=== PATIENT | male | born 1965 | race African-American/Black ===

== ENCOUNTER 2018-10-03 08:35 | Observation (INO) | payer MEDICAID ==
[2018-10-03] MEDS ORDERED: Sodium Chloride 0.9% 10 ML Syringe FLUSH PRN (09:04)
[2018-10-03] MEDS ORDERED: Sodium Chloride 0.9% 2.5 ML Syringe FLUSH PRN (09:04)
[2018-10-03] MEDS ORDERED: Labetalol 20 MG/4 ML Syringe IVPUSH ONE (09:04)
--- NOTE | 2018-10-03 09:09 | EDM.PDOC ---
ED HPI GENERAL MEDICAL PROBLEM - General Chief Complaint: Neuro Symptoms/Deficits Stated Complaint: SICK Time Seen by Provider: 10/03/18 08:54 - History of Present Illness INITIAL COMMENTS - FREE TEXT/NARRATIVE: HISTORY AND PHYSICAL: History of present illness: The patient is a 53-year-old male who presents with complaints of waking at 4: 00 this morning, approximately 5 hours ago with a frontal headache and feeling tingling and numbness on his right upper extremity right trunk and right leg. He had no weakness no nausea no vomiting no chest pain or shortness of breath and he says he took some Aleve/Advil and he went back to sleep. He woke this morning and did not have a headache but still had the numbness and tingling. He again says that there is no weakness no recent falls no neck or back pain and actually no headache or visual issues currently. The patient says that this happened about a year ago when he was at home in [place] and he was admitted to the hospital because his blood pressure was very high. He was not told that he had a stroke. He tells us that when he had this admission the numbness was so bad that he could not even walk. He says that the symptoms that he is having now are very similar to those that he had in [place]. He says that since that time he was on blood pressure medications, the name of which he does not know, but he ran out about 3 weeks ago. He says that over the last year he has had intermittent episodes of the same numbness or tingling on the right side but it never involves confusion or trouble swallowing and this is very similar that's why he was not alarmed at 4 in the morning. Currently he has no issues with speech she doesn't feel confused and he has no issues with swallowing. He ambulated into the ED. He denies any recent fevers chills or trauma no upper respiratory infections and he says he is eating and drinking normally. Currently on my evaluation he has no headache or weakness and he has this complaints of subjective numbness and tingling. He does live in [place] and does not have a local provider Review of systems: As per history of present illness and below otherwise all systems reviewed and negative. Past medical history: As per history of present illness and as reviewed below otherwise noncontributory. Surgical history: As per history of present illness and as reviewed below otherwise noncontributory. Social history: No reported history of drug or alcohol abuse. Family history: As per history of present illness and as reviewed below otherwise noncontributory. Physical exam: General: Well-developed well-nourished man who is nontoxic and speaking clearly in the ED. He is mildly overweight and vital signs are noted by me HEENT: Atraumatic, normocephalic, pupils reactive, negative for conjunctival pallor or scleral icterus, mucous membranes moist, throat clear, neck supple, nontender, trachea midline. Lungs: Clear to auscultation, breath sounds equal bilaterally, chest nontender. Heart: S1S2, regular, negative for clicks, rubs, or JVD. Abdomen: Soft, nondistended, nontender. Negative for masses or hepatosplenomegaly. Negative for costovertebral tenderness. Pelvis: Stable nontender. Genitourinary: Deferred. Rectal: Deferred. Extremities: Atraumatic, negative for cords or calf pain. Neurovascular unremarkable. No pedal edema or leg asymmetry Neuro: Awake, alert, oriented. Cranial nerves II through XII unremarkable. Cerebellum unremarkable. Motor and sensory unremarkable throughout. Exam nonfocal. There is no drift, motor block mechanic are normal bilaterally and strength is 5/5 throughout and on simple touch and pressure the patient has no sensory deficits appreciated. Dorsi and plantar flexion is 5/5 inclusive of the great toe. Diagnostics: NIHSS CT scan of the head chest x-ray CBC CMP INR troponin TSH UA with reflex Therapeutics: IV O2 monitor aspirin after CT scan of the head labetalol NIHSS=0 This case was called as a stroke code but the patient is currently at 5 hours and his stroke scale is 0 so at this point I do not feel that he is a candidate for TPA. Patient's repeat blood pressure is 160/94 without intervention. The patient had not received the dose of labetalol as I have ordered. We'll hold that at this time. 1125: Repeat blood pressure currently is 150/100 and the patient says his symptoms have resolved. In light of this pressure lability and his symptoms I will admit him as hypertension urgency with paresthesias. I will discuss this case with Dr. Myrick. The patient is aware of all of these findings and is agreeable 1140: Case is discussed with Dr. Myrick who accepts the patient for admission. I also discussed with the patient all of his testing results and observation admission and he is agreeable. Impression: Hypertensive urgency, right-sided paresthesias improved Definitive disposition and diagnosis as appropriate pending reevaluation and review of above. - Related Data Allergies Allergy/AdvReac Type Severity Reaction Status Date / Time No Known Allergies Allergy Verified 10/03/18 08:56 Home Meds: Home Meds Blood Pressure Medication 10/03/18 [History] Past Medical History Cardiovascular History: Reports: Hypertension - Infectious Disease History Infectious Disease History: Reports: Chicken Pox - Past Surgical History Other Musculoskeletal Surgeries/Procedures:: hand surgery Social & Family History - Family History Family Medical History: Noncontributory - Tobacco Use Smoking Status *Q: Never Smoker - Recreational Drug Use Recreational Drug Use: No ED ROS GENERAL - Review of Systems Review Of Systems: ROS reveals no pertinent complaints other than HPI. ED EXAM, GENERAL - Physical Exam Exam: See Below (See dictation) Course - Vital Signs Last Recorded V/S: Last Vital Signs Temp 36.2 C 10/03/18 10:09 Pulse 84 10/03/18 11:07 Resp 18 10/03/18 11:07 BP 162/98 H 10/03/18 11:07 Pulse Ox 97 10/03/18 11:07 - Orders/Labs/Meds Orders: Active Orders 24 hr Category Date Time Status Patient Status [ADT] Stat ADT 10/03/18 11:50 Ordered Blood Glucose Check, Bedside [RC] ONETIME Care 10/03/18 09:03 Active Cardiac Monitoring [RC] . DIRECTED Care 10/03/18 09:03 Active Communication Order [RC] STAT Care 10/03/18 09:05 Active EKG Documentation Completion [RC] STAT Care 10/03/18 09:03 Active Oxygen Therapy, ED [RC] ASDIRECTED Care 10/03/18 09:03 Active Pulse Oximetry [RC] ASDIRECTED Care 10/03/18 09:03 Active UA RFX ROSI AND CULT IF INDIC [URIN] Stat Lab 10/03/18 11:09 Ordered Sodium Chloride 0.9% [Saline Flush] Med 10/03/18 09:04 Active 10 ml FLUSH ASDIRECTED PRN Sodium Chloride 0.9% [Saline Flush] Med 10/03/18 09:04 Active 2.5 ml FLUSH ASDIRECTED PRN Saline Lock Insert [OM.PC] Stat Oth 10/03/18 09:03 Ordered Medication Orders Sodium Chloride (Saline Flush) 10 ml FLUSH ASDIRECTED PRN PRN Reason: Keep Vein Open Last Admin: 10/03/18 10:22 Dose: 10 ml Sodium Chloride (Saline Flush) 2.5 ml FLUSH ASDIRECTED PRN PRN Reason: Keep Vein Open Last Admin: 10/03/18 10:22 Dose: 2.5 ml Labs: Laboratory Tests 10/03/18 10/03/18 10/03/18 Range/Units 09:04 09:20 09:20 WBC 5.12 (4.0-11.0) K/uL RBC 6.14 H (4.50-5.90) M/uL Hgb 15.9 (13.0-17.0) g/dL Hct 48.7 (38.0-50.0) % MCV 79.3 L (80.0-98.0) fL MCH 25.9 L (27.0-32.0) pg MCHC 32.6 (31.0-37.0) g/dL RDW Std Deviation 43.5 (28.0-62.0) fl RDW Coeff of Cee 15 (11.0-15.0) % Plt Count 94 L (150-400) K/uL MPV 10.50 (7.40-12.00) fL Neut % (Auto) 55.4 (48.0-80.0) % Lymph % (Auto) 33.0 (16.0-40.0) % [place]son % (Auto) 9.2 (0.0-15.0) % Eos % (Auto) 2.0 (0.0-7.0) % Baso % (Auto) 0.4 (0.0-1.5) % Neut # (Auto) 2.8 (1.4-5.7) K/uL Lymph # (Auto) 1.7 (0.6-2.4) K/uL [place] # (Auto) 0.5 (0.0-0.8) K/uL Eos # (Auto) 0.1 (0.0-0.7) K/uL Baso # (Auto) 0.0 (0.0-0.1) K/uL Nucleated RBC % 0.0 /100WBC Nucleated RBCs # 0 K/uL INR 1.04 Sodium (136-148) mmol/L Potassium (3.5-5.1) mmol/L Chloride (98-107) mmol/L Carbon Dioxide (21.0-32.0) mmol/L BUN (7.0-18.0) mg/dL Creatinine (0.8-1.3) mg/dL Est Cr Clr Drug Dosing mL/min Estimated GFR (MDRD) ml/min Glucose (74-106) mg/dL POC Glucose 86 (60-110) mg/dL Calcium (8.5-10.1) mg/dL Total Bilirubin (0.2-1.0) mg/dL AST (15-37) IU/L ALT (14-63) IU/L Alkaline Phosphatase (46-116) U/L Troponin I (0.000-0.056) ng/mL Total Protein (6.4-8.2) g/dL Albumin (3.4-5.0) g/dL Globulin (2.6-4.0) g/dL Albumin/Globulin Ratio (0.9-1.6) TSH 3rd Generation (0.36-3.74) uIU/mL 10/03/18 Range/Units 09:20 WBC (4.0-11.0) K/uL RBC (4.50-5.90) M/uL Hgb (13.0-17.0) g/dL Hct (38.0-50.0) % MCV (80.0-98.0) fL MCH (27.0-32.0) pg MCHC (31.0-37.0) g/dL RDW Std Deviation (28.0-62.0) fl RDW Coeff of Cee (11.0-15.0) % Plt Count (150-400) K/uL MPV (7.40-12.00) fL Neut % (Auto) (48.0-80.0) % Lymph % (Auto) (16.0-40.0) % [place]pherson % (Auto) (0.0-15.0) % Eos % (Auto) (0.0-7.0) % Baso % (Auto) (0.0-1.5) % Neut # (Auto) (1.4-5.7) K/uL Lymph # (Auto) (0.6-2.4) K/uL [place]pherson # (Auto) (0.0-0.8) K/uL Eos # (Auto) (0.0-0.7) K/uL Baso # (Auto) (0.0-0.1) K/uL Nucleated RBC % /100WBC Nucleated RBCs # K/uL INR Sodium 141 (136-148) mmol/L Potassium 3.8 (3.5-5.1) mmol/L Chloride 106 (98-107) mmol/L Carbon Dioxide 22.8 (21.0-32.0) mmol/L BUN 14 (7.0-18.0) mg/dL Creatinine 1.4 H (0.8-1.3) mg/dL Est Cr Clr Drug Dosing 67.75 mL/min Estimated GFR (MDRD) > 60.0 ml/min Glucose 86 (74-106) mg/dL POC Glucose (60-110) mg/dL Calcium 8.5 (8.5-10.1) mg/dL Total Bilirubin 0.6 (0.2-1.0) mg/dL AST 20 (15-37) IU/L ALT 24 (14-63) IU/L Alkaline Phosphatase 97 (46-116) U/L Troponin I < 0.050 (0.000-0.056) ng/mL Total Protein 8.3 H (6.4-8.2) g/dL Albumin 3.3 L (3.4-5.0) g/dL Globulin 5.0 H (2.6-4.0) g/dL Albumin/Globulin Ratio 0.7 L (0.9-1.6) TSH 3rd Generation 1.89 (0.36-3.74) uIU/mL Meds: Medications Generic Name Dose Route Start Last Admin Trade Name Freq PRN Reason Stop Dose Admin Sodium Chloride 10 ml 10/03/18 09:04 10/03/18 10:22 Saline Flush FLUSH 10 ml ASDIRECTED PRN Administration Keep Vein Open Sodium Chloride 2.5 ml 10/03/18 09:04 10/03/18 10:22 Saline Flush FLUSH 2.5 ml ASDIRECTED PRN Administration Keep Vein Open Discontinued Medications Generic Name Dose Route Start Last Admin Trade Name Freq PRN Reason Stop Dose Admin Aspirin 325 mg 10/03/18 09:38 10/03/18 10:22 Aspirin PO 10/03/18 09:39 Not Given ONETIME ONE Aspirin Confirm 10/03/18 10:14 10/03/18 11:29 Aspirin Administered 10/03/18 10:15 Not Given Dose 324 mg .ROUTE .STK-MED ONE Aspirin 324 mg 10/03/18 10:21 10/03/18 10:22 Aspirin PO 10/03/18 10:22 324 mg ONETIME ONE Administration Labetalol HCl 20 mg 10/03/18 09:04 10/03/18 11:32 Normodyne IVPUSH 10/03/18 09:05 Not Given NOW ONE Protocol Departure - Departure Time of Disposition: 11:53 Disposition: Refer to Observation Condition: Good Clinical Impression: Hypertensive urgency, Paresthesias - Discharge Information Referrals: PCP,Unknown [Primary Care Provider] - Forms: ED Department Discharge - My Orders Last 24 Hours: My Active Orders 10/03/18 09:03 Blood Glucose Check, Bedside [RC] ONETIME Cardiac Monitoring [RC] . DIRECTED EKG Documentation Completion [RC] STAT Oxygen Therapy, ED [RC] ASDIRECTED Pulse Oximetry [RC] ASDIRECTED Saline Lock Insert [OM.PC] Stat 10/03/18 09:04 Sodium Chloride 0.9% [Saline Flush] 10 ml FLUSH ASDIRECTED PRN Sodium Chloride 0.9% [Saline Flush] 2.5 ml FLUSH ASDIRECTED PRN 10/03/18 09:05 Communication Order [RC] STAT 10/03/18 11:09 UA RFX ROSI AND CULT IF INDIC [URIN] Stat 10/03/18 11:50 Patient Status [ADT] Stat - Assessment/Plan Last 24 Hours: My Active Orders 10/03/18 09:03 Blood Glucose Check, Bedside [RC] ONETIME Cardiac Monitoring [RC] . DIRECTED EKG Documentation Completion [RC] STAT Oxygen Therapy, ED [RC] ASDIRECTED Pulse Oximetry [RC] ASDIRECTED Saline Lock Insert [OM.PC] Stat 10/03/18 09:04 Sodium Chloride 0.9% [Saline Flush] 10 ml FLUSH ASDIRECTED PRN Sodium Chloride 0.9% [Saline Flush] 2.5 ml FLUSH ASDIRECTED PRN 10/03/18 09:05 Communication Order [RC] STAT 10/03/18 11:09 UA RFX ROSI AND CULT IF INDIC [URIN] Stat 10/03/18 11:50 Patient Status [ADT] Stat
--- NOTE | 2018-10-03 09:36 | CT ---
HISTORY: Numbness. TECHNIQUE: Noncontrast head CT. COMPARISON: No prior. FINDINGS: There are a few areas of white matter low attenuation which are nonspecific but may reflect sequelae of chronic small vessel ischemic changes. There are globus palladi calcifications. There is no acute ischemic infarct or acute intracranial hemorrhage. No mass effect or midline shift. No hydrocephalus. No extra-axial collection or hematoma. Mastoid air cells are clear. There is mucosal thickening involving multiple paranasal sinuses. No acute skull fracture. IMPRESSION: 1. No acute intracranial disease. 2. A few areas of white matter low attenuation which are nonspecific but may reflect sequelae of chronic small vessel ischemic changes. Other considerations would sequelae of prior migraine headaches, demyelination versus other process. Dictated by Logan Ho MD @ 10/03/2018 9:34:33 AM Please note that all CT scans at this facility use dose modulation, iterative reconstruction, and/or weight-based dosing when appropriate to reduce radiation dose to as low as reasonably achievable. Dictated by: Logan Ho MD @ 10/03/2018 09:34:44 (Electronically Signed)
[2018-10-03] MEDS ORDERED: Aspirin 325 MG Tab PO ONE (09:38)
--- NOTE | 2018-10-03 09:38 | CR ---
HISTORY: Chest pain, shortness of breath. TECHNIQUE: One view of the chest. COMPARISON: No prior. FINDINGS: Examination limited by patient body habitus. There is no consolidation or pulmonary edema. No pneumothorax. No moderate or large pleural effusion. Cardiac size is within normal limits accounting for technique. IMPRESSION: 1. Examination limited by patient body habitus. 2. No definite acute disease. Dictated by Logan Ho MD @ 10/03/2018 9:35:50 AM Dictated by: Logan Ho MD @ 10/03/2018 09:35:52 (Electronically Signed)
[2018-10-03 10:12] LABS: CHLORIDE,CL 106 mmol/L (98-107); SODIUM,NA 141 mmol/L (136-148)
[2018-10-03] MEDS ORDERED: Aspirin 81 MG Tab.Chew ONE (10:14)
[2018-10-03] MEDS ORDERED: Aspirin 81 MG Tab.Chew PO ONE (10:21)
[2018-10-03] MEDS ORDERED: oxyCODONE 5 MG Tab PO PRN (12:12)
[2018-10-03] MEDS ORDERED: Acetaminophen 325 MG Tab PO PRN (12:12)
[2018-10-03] MEDS ORDERED: Heparin Sodium 5,000 Units/ML Vial SUBCUT SCH (12:15)
--- NOTE | 2018-10-03 12:17 | PCM.HP ---
H&P History of Present Illness - General Date of Service: 10/03/18 Admit Problem/Dx: Admission Diagnosis/Problem Admission Diagnosis/Problem Hypertensive urgency Source of Information: Patient History Limitations: Reports: No Limitations - History of Present Illness Initial Comments - Free Text/Narative: The patient is a 53-year-old gentleman who presented to the emergency room today with a complaint of numbness and tingling to his right side. The patient said this started approximately the patient also says that he has been without his antihypertensive medication for approximately 3 weeks. The patient normally lives in [place]. The patient's family is in [place] and he works up here during the summertime. The patient says that he does not remember what hypertensive medications he had been on. The patient was brought in as a stroke code. Upon admission the patient's blood pressure was 190/115 mmHg. Currently the patient says that he feels better. His blood pressure is been better controlled. The patient also says that his numbness and tingling has essentially gone away. He has denied any pain. No nausea or vomiting. He's had some dizziness associated. Onset of Symptoms: Reports: Sudden Duration of Symptoms: Reports: Hour(s): Location: Reports: Head, Upper Extremity, Right, Lower Extremity, Right Quality: Reports: Other (Numbness and tingling) Improves with: Reports: None Worsens with: Reports: None Associated Symptoms: Reports: No Other Symptoms - Related Data Allergies/Adverse Reactions: Allergies Allergy/AdvReac Type Severity Reaction Status Date / Time No Known Allergies Allergy Verified 10/03/18 08:56 Home Medications: Home Meds Blood Pressure Medication 10/03/18 [History] Past Medical History HEENT History: Reports: None Cardiovascular History: Reports: Hypertension Respiratory History: Reports: None Gastrointestinal History: Reports: None Genitourinary History: Reports: None Musculoskeletal History: Reports: None Neurological History: Reports: None Psychiatric History: Reports: None Endocrine/Metabolic History: Reports: None Hematologic History: Reports: None - Infectious Disease History Infectious Disease History: Reports: Chicken Pox - Past Surgical History Other Musculoskeletal Surgeries/Procedures:: hand surgery Social & Family History - Family History Family Medical History: Noncontributory - Tobacco Use Smoking Status *Q: Never Smoker - Alcohol Use Alcohol Use History: Yes Alcohol Use Frequency: Rarely - Recreational Drug Use Recreational Drug Use: No - Living Situation & Occupation Living situation: Reports: , with Family Occupation: Employed H&P Review of Systems - Review of Systems: Review Of Systems: See Below General: Reports: No Symptoms HEENT: Reports: No Symptoms Pulmonary: Reports: No Symptoms Cardiovascular: Reports: No Symptoms Gastrointestinal: Reports: No Symptoms Genitourinary: Reports: No Symptoms Musculoskeletal: Reports: No Symptoms Skin: Reports: No Symptoms Psychiatric: Reports: No Symptoms Neurological: Reports: Dizziness, Headache, Paresthesia Hematologic/Lymphatic: Reports: No Symptoms Immunologic: Reports: No Symptoms Exam - Exam Exam: See Below - Vital Signs Vital Signs: Last Vital Signs Temp 36.2 C 10/03/18 10:09 Pulse 80 10/03/18 11:59 Resp 12 10/03/18 11:59 BP 156/100 H 10/03/18 11:59 Pulse Ox 98 10/03/18 11:59 Weight: 113.852 kg - Exam Quality Assessment: No: Supplemental Oxygen General: Alert, Oriented, Cooperative HEENT: Conjunctiva Clear, EACs Clear, EOMI, Mucosa Moist & [place], Nares Patent, Pupils Equal, PERRLA Neck: Supple, Trachea Midline Lungs: Clear to Auscultation, Normal Respiratory Effort Cardiovascular: Regular Rate, Regular Rhythm GI/Abdominal Exam: Normal Bowel Sounds, Soft, Non-Tender, No Distention Back Exam: Normal Inspection, Full Range of Motion Extremities: Normal Inspection, Normal Range of Motion, No Pedal Edema Skin: Warm, Dry, Intact Neurological: Cranial Nerves Intact Neuro Extensive - Mental Status: Alert, Oriented x3 Psychiatric: Alert, Normal Affect, Normal Mood - Patient Data Lab Results Last 24 hrs: Laboratory Results - last 24 hr 10/03/18 10/03/18 10/03/18 Range/Units 09:04 09:20 09:20 WBC 5.12 (4.0-11.0) K/uL RBC 6.14 H (4.50-5.90) M/uL Hgb 15.9 (13.0-17.0) g/dL Hct 48.7 (38.0-50.0) % MCV 79.3 L (80.0-98.0) fL MCH 25.9 L (27.0-32.0) pg MCHC 32.6 (31.0-37.0) g/dL RDW Std Deviation 43.5 (28.0-62.0) fl RDW Coeff of Cee 15 (11.0-15.0) % Plt Count 94 L (150-400) K/uL MPV 10.50 (7.40-12.00) fL Neut % (Auto) 55.4 (48.0-80.0) % Lymph % (Auto) 33.0 (16.0-40.0) % Dawes % (Auto) 9.2 (0.0-15.0) % Eos % (Auto) 2.0 (0.0-7.0) % Baso % (Auto) 0.4 (0.0-1.5) % Neut # (Auto) 2.8 (1.4-5.7) K/uL Lymph # (Auto) 1.7 (0.6-2.4) K/uL Dawes # (Auto) 0.5 (0.0-0.8) K/uL Eos # (Auto) 0.1 (0.0-0.7) K/uL Baso # (Auto) 0.0 (0.0-0.1) K/uL Nucleated RBC % 0.0 /100WBC Nucleated RBCs # 0 K/uL INR 1.04 Sodium (136-148) mmol/L Potassium (3.5-5.1) mmol/L Chloride (98-107) mmol/L Carbon Dioxide (21.0-32.0) mmol/L BUN (7.0-18.0) mg/dL Creatinine (0.8-1.3) mg/dL Est Cr Clr Drug Dosing mL/min Estimated GFR (MDRD) ml/min Glucose (74-106) mg/dL POC Glucose 86 (60-110) mg/dL Calcium (8.5-10.1) mg/dL Total Bilirubin (0.2-1.0) mg/dL AST (15-37) IU/L ALT (14-63) IU/L Alkaline Phosphatase (46-116) U/L Troponin I (0.000-0.056) ng/mL Total Protein (6.4-8.2) g/dL Albumin (3.4-5.0) g/dL Globulin (2.6-4.0) g/dL Albumin/Globulin Ratio (0.9-1.6) TSH 3rd Generation (0.36-3.74) uIU/mL 10/03/18 Range/Units 09:20 WBC (4.0-11.0) K/uL RBC (4.50-5.90) M/uL Hgb (13.0-17.0) g/dL Hct (38.0-50.0) % MCV (80.0-98.0) fL MCH (27.0-32.0) pg MCHC (31.0-37.0) g/dL RDW Std Deviation (28.0-62.0) fl RDW Coeff of Cee (11.0-15.0) % Plt Count (150-400) K/uL MPV (7.40-12.00) fL Neut % (Auto) (48.0-80.0) % Lymph % (Auto) (16.0-40.0) % Dawes % (Auto) (0.0-15.0) % Eos % (Auto) (0.0-7.0) % Baso % (Auto) (0.0-1.5) % Neut # (Auto) (1.4-5.7) K/uL Lymph # (Auto) (0.6-2.4) K/uL Dawes # (Auto) (0.0-0.8) K/uL Eos # (Auto) (0.0-0.7) K/uL Baso # (Auto) (0.0-0.1) K/uL Nucleated RBC % /100WBC Nucleated RBCs # K/uL INR Sodium 141 (136-148) mmol/L Potassium 3.8 (3.5-5.1) mmol/L Chloride 106 (98-107) mmol/L Carbon Dioxide 22.8 (21.0-32.0) mmol/L BUN 14 (7.0-18.0) mg/dL Creatinine 1.4 H (0.8-1.3) mg/dL Est Cr Clr Drug Dosing 67.75 mL/min Estimated GFR (MDRD) > 60.0 ml/min Glucose 86 (74-106) mg/dL POC Glucose (60-110) mg/dL Calcium 8.5 (8.5-10.1) mg/dL Total Bilirubin 0.6 (0.2-1.0) mg/dL AST 20 (15-37) IU/L ALT 24 (14-63) IU/L Alkaline Phosphatase 97 (46-116) U/L Troponin I < 0.050 (0.000-0.056) ng/mL Total Protein 8.3 H (6.4-8.2) g/dL Albumin 3.3 L (3.4-5.0) g/dL Globulin 5.0 H (2.6-4.0) g/dL Albumin/Globulin Ratio 0.7 L (0.9-1.6) TSH 3rd Generation 1.89 (0.36-3.74) uIU/mL Result Diagrams: 10/03/18 09:20 10/03/18 09:20 - Problem List (1) Hypertensive urgency SNOMED Code(s): 681698075 ICD Code: I16.0 - HYPERTENSIVE URGENCY Status: Acute Priority: High Current Visit: Yes (2) Non compliance with medical treatment SNOMED Code(s): 7582935 ICD Code: Z91.19 - PATIENT'S NONCOMPLIANCE W OTH MEDICAL TREATMENT AND REGIMEN Status: Acute Priority: High Current Visit: Yes (3) Paresthesias SNOMED Code(s): 57572773 ICD Code: R20.2 - PARESTHESIA OF SKIN Status: Resolved Priority: High Current Visit: Yes Problem List Initiated/Reviewed/Updated: Yes Orders Last 24hrs: Active Orders 24 hr Category Date Time Status Patient Status [ADT] Stat ADT 10/03/18 11:50 Active Blood Glucose Check, Bedside [RC] ONETIME Care 10/03/18 09:03 Active Cardiac Monitoring [RC] . DIRECTED Care 10/03/18 09:03 Active Cardiac Monitoring [RC] CONTINUOUS Care 10/03/18 12:13 Ordered Communication Order [RC] STAT Care 10/03/18 09:05 Active EKG Documentation Completion [RC] STAT Care 10/03/18 09:03 Active Oxygen Therapy [RC] PRN Care 10/03/18 12:13 Ordered Oxygen Therapy, ED [RC] ASDIRECTED Care 10/03/18 09:03 Active Pulse Oximetry [RC] ASDIRECTED Care 10/03/18 09:03 Active VTE/DVT Education [RC] PER UNIT ROUTINE Care 10/03/18 12:13 Ordered Vital Signs [RC] Q4H Care 10/03/18 12:13 Ordered OT Evaluation and Treatment [CONS] Routine Cons 10/03/18 12:12 Ordered PT Evaluation and Treatment [CONS] Routine Cons 10/03/18 12:12 Ordered Heart Healthy Diet [DIET] Diet 10/03/18 Lunch Ordered Ang Head wo Cont [MR] Routine Exams 10/03/18 12:12 Ordered Ang Neck wo Cont [MR] Routine Exams 10/03/18 12:12 Ordered BASIC METABOLIC PANEL,BMP [CHEM] AM Lab 10/04/18 05:11 Ordered CBC WITH AUTO DIFF [HEME] AM Lab 10/04/18 05:11 Ordered UA RFX ROSI AND CULT IF INDIC [URIN] Stat Lab 10/03/18 11:09 Ordered Acetaminophen [Tylenol] Med 10/03/18 12:12 Ordered 650 mg PO Q4H PRN Heparin Sodium Med 10/03/18 12:15 Ordered 5,000 units SUBCUT Q8H Lisinopril/Hydrochlorothiazide [Lisinopril-HCTZ 10-12.5 Med 10/04/18 09:00 Ordered MG] 1 tab PO DAILY Sodium Chloride 0.9% [Saline Flush] Med 10/03/18 09:04 Active 10 ml FLUSH ASDIRECTED PRN Sodium Chloride 0.9% [Saline Flush] Med 10/03/18 09:04 Active 2.5 ml FLUSH ASDIRECTED PRN oxyCODONE Med 10/03/18 12:12 Ordered 5 mg PO Q4H PRN Saline Lock Insert [OM.PC] Stat Oth 10/03/18 09:03 Ordered Resuscitation Status Routine Resus Stat 10/03/18 12:12 Ordered Medication Orders Sodium Chloride (Saline Flush) 10 ml FLUSH ASDIRECTED PRN PRN Reason: Keep Vein Open Last Admin: 10/03/18 10:22 Dose: 10 ml Sodium Chloride (Saline Flush) 2.5 ml FLUSH ASDIRECTED PRN PRN Reason: Keep Vein Open Last Admin: 10/03/18 10:22 Dose: 2.5 ml Assessment/Plan Comment:: The patient is a 53 year old gentleman who is otherwise healthy and had to present to the ER with numbness and tingling to right side. With the patients history of hypertension and symptoms I have ordered an MRI/MRA to exclude ischemic disease. The patient will be admitted to medical surgery for control of his hypertension. He was started on lisinopril/HCTZ 03/12.5 to help to control his HTN. The patient will be kept on heart healthy diet. He has been encouraged to ambulate. He will also be kept on IV fluids of normal saline for hydration. With control of his HTN and normal MRI he should be appropriate for discharge tomorrow.
[2018-10-03] MEDS: Lisinopril/Hydrochlorothiazide 10-12.5 MG Tab PO SCH (14:18)
[2018-10-04 06:00] LABS: CHLORIDE,CL 103 mmol/L (98-107); SODIUM,NA 137 mmol/L (136-148)
[2018-10-04] MEDS ORDERED: Potassium Chloride 20 MEQ Tab.ER PO ONE (07:32)
[2018-10-04] MEDS: Lisinopril/Hydrochlorothiazide 10-12.5 MG Tab PO SCH (08:26)
--- NOTE | 2018-10-04 10:15 | PCM.DCSUM1 ---
Discharge Summary - Hospital Course Free Text/Narrative:: Admission date: 10/03/2018 Discharge date: 10/04/2018 Admission diagnosis: #1. Hypertensive urgency #2. Paraesthesia Discharge diagnosis: #1. Hypertension #2. Paraesthesia - resolved #3. History of hypertension #4. Mild hypokalemia Hospital course: 53M AA with a history of hypertension with noncompliance that presented to the emergency department with complaints of paresthesias x6 months. 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 This morning when I evaluated him, he declines any numbness, tingling, confusion, blurry vision, chest pain. There was concern initially about a possible stroke code, but these symptoms are chronic and he doesn't need urgent imagin. He feels comfortable to go home. Blood pressure at the time of discharge was in the 150s/ 90s. He will benefit from dual agent anti-hypertensives. He is going to follow up with me in clinic. Advised him to purchase a blood pressure machine. He was encouraged to follow a low salt diet. Patient agrees to the plan. Diagnosis: Stroke: No - Discharge Data Discharge Date: 10/04/18 Discharge Disposition: Home, Self-Care 01 Condition: Stable - Patient Summary/Data Consults: Consultations 10/03/18 12:12 OT Evaluation and Treatment [CONS] Routine PT Evaluation and Treatment [CONS] Routine - Patient Instructions Diet: Low Sodium Activity: As Tolerated Driving: May Drive Today Showering/Bathing: May Shower Notify Provider of: Fever, Increased Pain, Swelling and Redness, Nausea and/or Vomiting - Discharge Plan *PRESCRIPTION DRUG MONITORING PROGRAM REVIEWED*: Not Applicable *COPY OF PRESCRIPTION DRUG MONITORING REPORT IN PATIENT NICHOL: Not Applicable Prescriptions/Med Rec: amLODIPine [Norvasc] 2.5 mg PO DAILY #30 tablet hydroCHLOROthiazide [Hydrochlorothiazide] 25 mg PO DAILY 30 Days #30 tab Home Medications: Home Meds amLODIPine [Norvasc] 2.5 mg PO DAILY #30 tablet 10/04/18 [Rx] hydroCHLOROthiazide [Hydrochlorothiazide] 25 mg PO DAILY 30 Days #30 tab [Rx] Patient Handouts: Hypertension, [id number], Amlodipine tablets, Paresthesia, [id number], Hydrochlorothiazide, HCTZ capsules or tablets Referrals: [facility] [Outside] Jeramy Lovelace MD [Resident] - 10/12/18 1:30 pm (Please call clinic to reschedule if you are unable to keep this appointment.) - Discharge Summary/Plan Comment DC Time >30 min.: No - Patient Data Vitals - Most Recent: Last Vital Signs Temp 37.1 C 10/04/18 07:38 Pulse 73 10/04/18 08:26 Resp 16 10/04/18 07:38 BP 151/106 H 10/04/18 08:26 Pulse Ox 97 10/04/18 07:38 Weight - Most Recent: 113.852 kg I&O - Last 24 hours: Intake & Output 10/03/18 10/04/18 10/04/18 22:59 06:59 14:59 Intake Total 700 Output Total 1 Balance 699 Lab Results - Last 24 hrs: Laboratory Results - last 24 hr 10/03/18 10/04/18 10/04/18 Range/Units 09:20 05:29 05:29 WBC 6.99 (4.0-11.0) K/uL RBC 5.91 H (4.50-5.90) M/uL Hgb 15.2 (13.0-17.0) g/dL Hct 46.6 (38.0-50.0) % MCV 78.8 L (80.0-98.0) fL MCH 25.7 L (27.0-32.0) pg MCHC 32.6 (31.0-37.0) g/dL RDW Std Deviation 43.0 (28.0-62.0) fl RDW Coeff of Cee 15 (11.0-15.0) % Plt Count 259 (150-400) K/uL MPV 10.00 (7.40-12.00) fL Neut % (Auto) 51.8 (48.0-80.0) % Lymph % (Auto) 33.2 (16.0-40.0) % Appling % (Auto) 11.6 (0.0-15.0) % Eos % (Auto) 3.0 (0.0-7.0) % Baso % (Auto) 0.4 (0.0-1.5) % Neut # (Auto) 3.6 (1.4-5.7) K/uL Lymph # (Auto) 2.3 (0.6-2.4) K/uL Appling # (Auto) 0.8 (0.0-0.8) K/uL Eos # (Auto) 0.2 (0.0-0.7) K/uL Baso # (Auto) 0.0 (0.0-0.1) K/uL Nucleated RBC % 0.0 /100WBC Nucleated RBCs # 0 K/uL Sodium 141 137 (136-148) mmol/L Potassium 3.8 3.3 L (3.5-5.1) mmol/L Chloride 106 103 (98-107) mmol/L Carbon Dioxide 22.8 25.5 (21.0-32.0) mmol/L BUN 14 19 H (7.0-18.0) mg/dL Creatinine 1.4 H 1.4 H (0.8-1.3) mg/dL Est Cr Clr Drug Dosing 67.75 67.75 mL/min Estimated GFR (MDRD) > 60.0 > 60.0 ml/min Glucose 86 96 (74-106) mg/dL Calcium 8.5 8.5 (8.5-10.1) mg/dL Total Bilirubin 0.6 (0.2-1.0) mg/dL AST 20 (15-37) IU/L ALT 24 (14-63) IU/L Alkaline Phosphatase 97 (46-116) U/L Troponin I < 0.050 (0.000-0.056) ng/mL Total Protein 8.3 H (6.4-8.2) g/dL Albumin 3.3 L (3.4-5.0) g/dL Globulin 5.0 H (2.6-4.0) g/dL Albumin/Globulin Ratio 0.7 L (0.9-1.6) TSH 3rd Generation 1.89 (0.36-3.74) uIU/mL Med Orders - Current: Current Medications Acetaminophen (Tylenol) 650 mg PO Q4H PRN PRN Reason: Pain (Mild 1-3)/fever Lisinopril/HCTZ (Lisinopril-Hctz 10-12.5 Mg) 1 tab PO DAILY LY Last Admin: 10/04/18 08:26 Dose: 1 tab Oxycodone HCl (Oxycodone) 5 mg PO Q4H PRN PRN Reason: Pain (moderate 4-6) Sodium Chloride (Saline Flush) 10 ml FLUSH ASDIRECTED PRN PRN Reason: Keep Vein Open Last Admin: 10/03/18 10:22 Dose: 10 ml Sodium Chloride (Saline Flush) 2.5 ml FLUSH ASDIRECTED PRN PRN Reason: Keep Vein Open Last Admin: 10/03/18 10:22 Dose: 2.5 ml Discontinued Medications Aspirin (Aspirin) 325 mg PO ONETIME ONE Stop: 10/03/18 09:39 Last Admin: 10/03/18 10:22 Dose: Not Given Aspirin (Aspirin) Confirm Administered Dose 324 mg .ROUTE .STK-MED ONE Stop: 10/03/18 10:15 Last Admin: 10/03/18 11:29 Dose: Not Given Aspirin (Aspirin) 324 mg PO ONETIME ONE Stop: 10/03/18 10:22 Last Admin: 10/03/18 10:22 Dose: 324 mg Heparin Sodium (Porcine) (Heparin Sodium) 5,000 units SUBCUT Q8H LY Last Admin: 10/03/18 15:22 Dose: Not Given Labetalol HCl (Normodyne) 20 mg IVPUSH NOW ONE; Protocol Stop: 10/03/18 09:05 Last Admin: 10/03/18 11:32 Dose: Not Given Potassium Chloride (Klor-Con M20) 40 meq PO ONETIME ONE Stop: 10/04/18 07:33 Last Admin: 10/04/18 08:25 Dose: 40 meq *Q Meaningful Use (DIS) - VTE *Q VTE Pharmacological Contraindications *Q: Thrombocytopenia
== END 2018-10-04 10:25 | disposition home or self-care (01) ==
LOC: MW.ED 08:35 → MW.MS 12:10
PROVIDERS: ADMIT Internal Medicine; ATTEND Internal Medicine
DX: I16.0 Hypertensive urgency (principal); I10 Essential (primary) hypertension; E87.6 Hypokalemia; R20.2 Paresthesia of skin; Z91.14 Patient's other noncompliance with medication regimen; Z79.899 Other long term (current) drug therapy
CPT/HCPCS: 36415; 70450; 71045; 80048; 80053; 82962; 84443; 84484; 85025; 85610; 93005; 97161; 99285; A9270; 99284; G0378